=== PATIENT | female | born 1990 | race Asian ===

== ENCOUNTER 2021-05-20 06:12 | Day surgery (SDC) | payer OTHER ==
--- NOTE | 2021-05-17 16:53 | History and Physical Report ---
History of Present Illness Date of examination: 05/16/21 History of present illness: Patient has been reassessed/reevaluated. H&P has been reviewed. No interval changes. 30 year old Patient desires sterilization. Discussed with various methods of contraceptives including abstinence, barrier and hormonal. Discussed oral, implantable, dermal, injectable,intravaginal and intrauterine methods. Patient declined temporary contraceptives. Discuss the permanency of sterilization. High risk of regret and 0.5 to 1% risk of failure. Questions answered Patient understands and desires to proceed. Vital Signs: Patient Profile: 30 Years Old Female LMP: 04/25/2021 Height: 69 inches Weight: 425 pounds BMI: 62.75 Temp: 97.2 degrees F BP sittin / 80 Menstrual History: LMP (date): 04/25/2021 On BCP's at conception: no Current Method of Contraception: None Date of Last Pap Smear: 06/29/2020 Past History : 5 Term Births: 4 Premature Births: 1 Living Children: 5 Para: 5 Mult. Births: 0 Prev : 2 Prev. attempt? success x2 Aborta: 0 Elect. Ab: 0 Spont. Ab: 0 Ectopics: 0 # 1 Delivery date: 2009 Weeks Gestation: 32 labor: yes Delivery type: Hours of labor: 4 Anesthesia type: none Delivery location: [place] [facility] Sex: Male weight: 5lbs 6oz Name: "Jacek" Comments: PTD, denies complications # 2 Delivery date: 2010 Weeks Gestation: 41 labor: no Delivery type: Hours of labor: 3 Anesthesia type: general Delivery location: [facility] [place] Sex: Male weight: [id number] Name: "Jr" Comments: emergency CS for malpresentation, denies further complications # 3 Delivery date: 2017 Weeks Gestation: 38 Delivery type: Anesthesia type: spinal Delivery location: [place], [place] Sex: Male weight: [id number] Name: "Jimmy" Comments: Scheduled Rpt CS, denies complications # 4 Delivery date: 2018 Weeks Gestation: 37 labor: no Delivery type: Hours of labor: 8 Delivery location: [place] [facility] Sex: Female weight: [id number] Name: "Serenity" Comments: denies complications # 5 Delivery date: 02/08/2021 Weeks Gestation: 38 Delivery type: Anesthesia type: epidural Delivery location: [facility] Infant Sex: Female Current Allergies (reviewed today): No known allergies Past Medical History: Morbid Obesity Past Surgical History: x 2 Family History Summary: MGF - Has Family History of Prostate Cancer Social History: Patient is Smoking History: Patient has never smoked. Risk Factors Tobacco use: never Passive smoke exposure: no Alcohol use: no HIV high risk behavior: no Caffeine use (drinks/day): 0 Exercise (times/week): 7 Type of exercise: walk Seatbelt use: 100 % TREE SCOUT History Uterine Surgery (not C/S): negative Operations: x 2 Anesthesia Complications: negative Abnormal PAP: negative Uterine Anomaly: negative PHOEBE Exposure: negative Infertility: negative Infection History HIV Risk Eval: no TB exposure: no Personal hx. of genital herpes: no Partner hx. of genital herpes: no Hx of STD: none Review of Systems General Complains of fatigue. Denies fever, chills, sweats, anorexia, weakness, malaise, weight loss and sleep disorder. Denies vaginal discharge, incontinence, dysuria, hematuria, urinary frequency, amenorrhea, menorrhagia, abnormal vaginal bleeding, pelvic pain, genital sores, decreased libido, painful periods, painful sex, urinary urgency, hot flashes, vaginal dryness, vaginal itching and vaginal odor. CV Denies chest pains, palpitations, syncope, dyspnea on exertion, orthopnea, PND and peripheral edema. Resp Denies cough, dyspnea at rest, excessive sputum, hemoptysis, wheezing and pleurisy. GI Complains of constipation. Denies nausea, vomiting, diarrhea, change in bowel habits, abdominal pain, melena, hematochezia, jaundice, gas/bloating, indigestion/heartburn, dysphagia and odynophagia. Breast Denies left breast lump, right breast lump, nipple discharge, bloody discharge from nipple, breast pain, abnormal mammogram and breast enlargement. MS Complains of joint pain. Psych Denies depression, anxiety, irritability and mood swings. Past History Past Medical History: other (See HPI) Past Surgical History: Other (See HPI) Social history: full code, other (See HPI) Family history: other (See HPI) Medications and Allergies Allergies Allergy/AdvReac Type Severity Reaction Status Date / Time No Known Allergies Allergy Unverified 05/13/21 10:14 Home Medications Medication Instructions Recorded Confirmed Last Taken Type No Known Home Medications [No 05/13/21 05/13/21 Unknown History Reported Home Medications] Review of Systems Constitutional: other (See HPI) Exam - Physical Exam Narrative exam: HEENT: normocephalic, morbid obesity Skin no abnormal lesions or rashes Chest: respiratory effort normal CV: regular, normal S1-S2, no murmur, no rub, no gallop Abdomen: obese normal bowel sounds, soft, nontender, no HSM Well healed pfannenstiel scar Neuro: no gross anomalities Extremities: no discoloration or edema TREE SCOUT Exams Vulva/Vagina: No lesions, normal BUS, normal rugae Cervix: No lesions; no cervical motion tenderness Uterus: unable to palpate due to obesity Adnexae: exam limited d/t morbid obesity; no masses or tenderness Rectovaginal: exam defered Results - Labs CBC & Chem 7: 05/19/21 12:50 Assessment and Plan - Patient Problems (1) Sterilization Current Visit: No Status: Acute Plan to address problem: Patient desires sterilization.Discuss the permanency of sterilization. High risk of regret and 0.5 to 1% risk of failure. Discussed options of tubal blockage and salpingectomy and it's possible benefit of preventing ovarian cancer and increa sed risks of bleeding during the procedure. Discuss the risks of the surgery including infection, bleeding possibly heavy enough to require a blood transfusion, possilble damage to bowel, bladder or ureter. Patient understands her risks of adjacent organ damage is increased due to her previous surgery(ies) Patient understands and desires to proceed with salpingectomy. (2) Adult BMI 60.0-69.9 kg/sq m Current Visit: No Status: Acute Plan to address problem: Patient has been advised that obesity does increase risks of surgical and risks of post operative complications.
[2021-05-19 13:05] LABS: Basophils # (Auto) 0.1 K/mm3 (0.0-0.1); Eosinophils # (Auto) 0.1 K/mm3 (0.0-0.4); Eosinophils % (Auto) 2.3 % (0.0-4.3); Hematocrit 35.5 % (30.3-42.9); Hemoglobin 11.9 gm/dl (10.1-14.3); Lymphocytes # (Auto) 1.7 K/mm3 (1.2-5.4); Lymphocytes % (Auto) 29.7 % (13.4-35.0); Mean Corpuscular HGB Conc 34 % (30-34); Mean Corpuscular Volume 86 fl (79-97); Monocytes # (Auto) 0.6 K/mm3 (0.0-0.8); Monocytes % (Auto) 9.8 % (0.0-7.3); Platelet Count 258 K/mm3 (140-440); Red Blood Count 4.13 M/mm3 (3.65-5.03); Red Cell Distribution Width 14.9 % (13.2-15.2)
[~2021-05-20 06:12] MED LIST: ACETAMINOPHEN 500 MG TAB PO SCH; CELECOXIB 200 MG CAP PO NR; GABAPENTIN 300 MG CAP PO NR; LACTATED RINGERS 1,000 ML IV SCH; SCOPOLAMINE TRANSDERMAL PATCH 72 HR TD NR
[2021-05-20] MEDS ORDERED: dexAMETHasone 20 MG/5 ML VIAL ONE (07:16)
[2021-05-20] MEDS ORDERED: LIDOCAINE MPF (2%) 20 MG/1 ML VIAL 5 ML ONE (07:16)
[2021-05-20] MEDS ORDERED: propofoL 200 MG/20 ML VIAL IV ONE ×2 (07:16)
[2021-05-20] MEDS ORDERED: fentaNYL 100 MCG/2 ML INJ ONE (07:16)
[2021-05-20] MEDS ORDERED: ROCURONIUM 50 MG/5 ML INJ IV ONE (07:16)
[2021-05-20] MEDS ORDERED: ONDANSETRON 4 MG/2 ML INJ ONE (07:16)
--- NOTE | 2021-05-20 07:22 | Anesthesia Day of Surgery ---
Anesthesia Day of Surgery - Day of Surgery Patient Examined: Yes Patient H&P Reviewed: Yes Patient is NPO: Yes Beta Blockers: No Aldair's Test: N/A
--- NOTE | 2021-05-20 07:25 | Anesthesia Consultation ---
<LYDIA MUNGUIA - Last Filed: 05/20/21 07:23> Anesthesia Consult and Med Hx Date of service: 05/20/21 - Airway Anesthetic Teeth Evaluation: Good ROM Head & Neck: Adequate Mental/Hyoid Distance: Adequate Mallampati Class: Class II Intubation Access Assessment: Probably Good - Cardiac Exam Cardiac Exam: RRR - Pre-Operative Health Status ASA Pre-Surgery Classification: ASA2 Proposed Anesthetic Plan: General - Pulmonary Hx Smoking: No Hx Asthma: No Hx Sleep Apnea: No - Cardiovascular System Hx Hypertension: No - Central Nervous System Hx Seizures: No Hx Psychiatric Problems: No - Gastrointestinal Hx Gastroesophageal Reflux Disease: No - Endocrine Hx Insulin Dependent Diabetes: No Hx Non-Insulin Dependent Diabetes: No Hx Thyroid Disease: No - Hematic Hx Anemia: No Hx Sickle Cell Disease: No - Other Systems Hx Alcohol Use: No Hx Substance Use: No Hx Cancer: No <ANTWON BANGURA - Last Filed: 05/20/21 07:28> Anesthesia Consult and Med Hx - Pre-Operative Health Status ASA Pre-Surgery Classification: ASA3 Proposed Anesthetic Plan: General - Other Systems Hx Obesity: Yes (BMI 62)
[2021-05-20] MEDS ORDERED: BUPIVACAINE/PF (0.5%) 5 MG/1 ML 30 ML VIAL INFILTRATI ONE ×2 (07:44→09:16)
[2021-05-20] MEDS ORDERED: MIDAZOLAM 2 MG/2 ML INJ ONE (07:52)
[2021-05-20] MEDS ORDERED: oxyCODONE /ACETAMINOPHEN 5-325MG TAB PO PRN (09:00)
[2021-05-20] MEDS ORDERED: HYDROmorphone 1 MG/1 ML INJ IV PRN (09:00)
[2021-05-20] MEDS ORDERED: ONDANSETRON 4 MG/2 ML INJ IV PRN (09:00)
[2021-05-20] MEDS ORDERED: SODIUM CHLORIDE 0.9% IRR 1,500 ML BOTTLE IR ONE (09:16)
[2021-05-20] MEDS ORDERED: KETOROLAC 30 MG/1 ML INJ ONE (09:22)
[2021-05-20] MEDS ORDERED: LACTATED RINGERS 1,000 ML ONE (09:22)
--- NOTE | 2021-05-20 09:22 | Operative Report ---
Operative Report Operative Report: Date of procedure: May 20, 2021 Pre-operative diagnosis: Patient desires permanent sterilization and morbid obesity Post-operative diagnosis: Same Procedure name(s): Laparoscopic bilateral salpingectomy Surgeon: Hesham Roberts MD Application Developer: LETITIA Anesthesia: General endotracheal EBL: Minimal Complications: None Findings: Patient with uterus approximately 8 weeks in size with normal fallopian tubes bilaterally Specimen(s): Bilateral fallopian tubes Patient was brought in the operating room. General anesthesia was induced without difficulty. She was placed in dorsal lithotomy position. Prepped and draped in usual sterile manner. Her urinary bladder with was emptied with a red rubber catheter. Speculum placed in her vagina and Sargis uterine manipulator was placed for uterine manipulation without difficulty. Attention was then switched to the patient's abdomen. An infra-umbilical incision was made with a scalpel. This incision was spread with a hemostat. A 5 mm trocar was placed in this incision while lifting high the abdominal wall. Intra-abdominal presence was verified directly with the laparoscope. The patient was then insufflated to approximately 3 L of CO2 gas. The patient's findings as noted above. An accessory puncture was made suprapubically. The 5 mm trocar was placed through this incision under direct visualization with no evidence of internal organ damage. Each of the fallopian tube were identified by its fimbriated end. Starting with the right fallopian tube approximately 1 to 2 cm from the cornea LigaSure device was used to cross sectional cut the tube. From this point the ligature device was used to cauterize and cut the mesosalpinx until the fimbriated end was reached detaching the tube. The fallopian tube was then removed through the accessory port attention was then switched to the contralateral tube. Same procedure was performed detaching that tube and removed it through the accessory port. The remaining stump was inspected and found to be hemostatic. At this time all instruments were removed. The patient was de-insufflated. The skin incisions were closed subcuticularly with 4-0 Vicryl. Marcaine was injected into the surgical incisions, for postoperative pain relief. The patient tolerated procedure well. She was awakened in the operating room and accompanied to the recovery room in good condition.
[2021-05-20] MEDS ORDERED: NEOSTIGMINE 10MG/10 ML INJ MDV ONE (09:27)
[2021-05-20] MEDS ORDERED: GLYCOPYRROLATE 0.4 MG/2 ML INJ ONE (09:27)
--- NOTE | 2021-05-20 09:49 | Discharge Summary ---
Short Stay Discharge Plan Activity: advance as tolerated Wound: open to air Additional Instructions: Patient was admitted underwent the above him procedure without any complications. Patient will be discharged with follow-up in office in 1-2 weeks for postop check. Patient to call office for any fever, chills, nausea, vomiting or pain not controlled by pain medication. Follow up with: PRIMARY CARE, [Primary Care Provider] - 7 Days Prescriptions: Ibuprofen [Motrin 800 MG tab] 800 mg PO Q6H PRN #30 tablet PRN Reason: Pain oxyCODONE /ACETAMINOPHEN [Percocet 5/325 mg] 1 tab PO Q6HR PRN #20 tablet PRN Reason: Pain
[2021-05-20] MEDS ORDERED: HYDROcodone/ACETAMINOPHEN 5-325 MG TAB PO PRN (10:00)
[2021-05-20] MEDS ORDERED: IBUPROFEN 600 MG TAB PO PRN (10:00)
[2021-05-20 11:24] VITALS: BP 138/76
--- NOTE | 2021-05-20 12:32 | Post Anesthesia Evaluation ---
- Post Anesthesia Evaluation Patient Participated: Yes Airway Patent: Yes Stable Respiratory Function: Yes Nausea/Vomiting: No Temp > 96.8F: Yes Pain Manageable: Yes Adequeate Hydration: Yes Anesthesia Complications: No
== END 2021-05-20 11:10 | disposition home or self-care (01) ==
LOC: OR 06:12
PROVIDERS: ATTEND Obstetrics & Gynecology
DX: Z30.2 Encounter for sterilization (principal); Z20.828 Contact with and (suspected) exposure to other viral communicable diseases; E66.9 Obesity, unspecified; Z79.899 Other long term (current) drug therapy; Z98.891 History of uterine scar from previous surgery; Z68.44 Body mass index [BMI] 60.0-69.9, adult
CPT/HCPCS: 36415; 58670; 84703; 85025; 88302; J1100; J1815; J1885; J2250; J2405; J2704; J2710; J3010; J3490; J7120; U0003